=== PATIENT | female | born 1995 | race Caucasian/White ===

== ENCOUNTER 2021-06-25 11:59 | Emergency (ER) | payer OTHER ==
[~2021-06-25] VITALS: Ht 170.2 cm; Wt 65.9 kg
[2021-06-25] MEDS ORDERED: SLYND4 MG PO (12:24)
[2021-06-25] MEDS ORDERED: AMITRIPTYLINE H10 M1 PO (12:25)
[2021-06-25 13:03] VITALS: BP 120/67; PULSE 72; TEMP 98.1
== END 2021-06-25 13:06 | disposition home or self-care (01) ==
LOC: COL.ER 11:59
DX: S09.90XA Unspecified injury of head, initial encounter (principal); S00.91XA Abrasion of unspecified part of head, initial encounter; Y93.23 Activity, snow (alpine) (downhill) skiing, snowboarding, sledding, tobogganing and snow tubing; W22.01XA Walked into wall, initial encounter